=== PATIENT | male | born 1980 | race African-American/Black ===

== ENCOUNTER 2018-10-12 11:17 | Emergency (ER) | payer SELFPAY ==
--- NOTE | 2018-10-12 13:32 | EDM.PDOC ---
ED HPI GENERAL MEDICAL PROBLEM - General Chief Complaint: Lower Extremity Injury/Pain Stated Complaint: NEEDS TO BE CHECKED FOR BLOOD CLOT IN LEFT LEG Time Seen by Provider: 10/12/18 11:24 Source of Information: Reports: Patient History Limitations: Reports: No Limitations - History of Present Illness INITIAL COMMENTS - FREE TEXT/NARRATIVE: 38 y/o male presents to ER with cc left lower calf/ankle swelling and pain. He reports the pain started about 7 days ago. He reports the pain has increased and he has noticed an increased amount of swelling. He denies any recent long distant trips. He denies any SOB or chest pain. He denies any fever or chills. He reports the he has been in good health otherwise. He states he is concerned he might have a blood clot in his leg. Onset Date: 10/05/18 Onset Time: 09:00 Duration: Getting Worse Location: Reports: Lower Extremity, Left Quality: Reports: Ache Severity: Mild Improves with: Reports: None Worsens with: Reports: Movement Associated Symptoms: Denies: Chest Pain, Fever/Chills, Nausea/Vomiting, Shortness of Breath Left Lower Leg Pain Score (Numeric/FACES): 2 - Related Data Allergies Allergy/AdvReac Type Severity Reaction Status Date / Time No Known Allergies Allergy Verified 10/12/18 11:24 Home Meds: Home Meds . [No Known Home Meds] 10/12/18 [History] Past Medical History - Past Surgical History GI Surgical History: Reports: Appendectomy Social & Family History - Tobacco Use Smoking Status *Q: Never Smoker Second Hand Smoke Exposure: No - Caffeine Use Caffeine Use: Reports: Coffee - Recreational Drug Use Recreational Drug Use: No Review of Systems - Review of Systems Review Of Systems: See Below Constitutional: Reports: No Symptoms. Denies: Chills, Fever Eyes: Reports: No Symptoms Ears: Reports: No Symptoms Nose: Reports: No Symptoms Mouth/Throat: Reports: No Symptoms Respiratory: Denies: Shortness of Breath, Cough Cardiovascular: Denies: Chest Pain GI/Abdominal: Reports: No Symptoms Genitourinary: Reports: No Symptoms Musculoskeletal: Reports: Leg Pain (left ankle swelling and left calf swelling and pain. ), Foot Pain Skin: Reports: No Symptoms Neurological: Reports: No Symptoms Psychiatric: Reports: No Symptoms ED EXAM, GENERAL - Physical Exam Exam: See Below Exam Limited By: No Limitations General Appearance: Alert, WD/WN, No Apparent Distress Respiratory/Chest: No Respiratory Distress, Lungs Clear, Normal Breath Sounds, No Accessory Muscle Use, Chest Non-Tender Cardiovascular: Normal Peripheral Pulses, Regular Rate, Rhythm, No Edema, No Gallop, No JVD, No Murmur, No Rub Peripheral Pulses: 4+: Dorsalis Pedis (L), Dorsalis Pedis (R) GI/Abdominal: Normal Bowel Sounds, Soft, Non-Tender, No Organomegaly, No Distention, No Abnormal Bruit, No Mass, Pelvis Stable Back Exam: Normal Inspection, Full Range of Motion Extremities: No Pedal Edema, Normal Capillary Refill, Leg Pain (left calf moderate swelling, negative jaci's sign, left ankle swelling, neurovascularly intact. ), Increased Warmth. No: Jaci's Sign Neurological: Alert, Oriented, CN II-XII Intact, Normal Cognition, Normal Gait, Normal Reflexes, No Motor/Sensory Deficits Psychiatric: Normal Affect, Normal Mood Skin Exam: Warm, Dry, Intact, Normal Color, No Rash Lymphatic: No Adenopathy Course - Vital Signs Text/Narrative:: 38 y/o male presented to ER with cc left lower leg pain and swelling for the past 7 days. His Doppler revealed deep venous thrombosis starting within the distal left superficial femoral vein and extending distally. He was not SOB or experiencing chest pain. I do not feel he needs a PE workup at this time. I will discharge home with Xarelto 15 mg bid for 21 days then 20mg daily. I have given him a coupon for a 30 day free supply. I instructed him to take medications with food. I will discharge with instructions to follow up with Dr. Candelaria or other provider in clinic next week since he does not have a PCP. I instructed him to return to the ER for any new or acute worsening symptoms. I will allow patient to return to work 10/13/18 after he has started on his Xarelto. Last Recorded V/S: Last Vital Signs Temp 99.7 F 10/12/18 11:24 Pulse 74 10/12/18 11:24 Resp 18 10/12/18 11:24 BP 140/107 H 10/12/18 11:24 Pulse Ox - Orders/Labs/Meds Labs: Laboratory Tests 10/12/18 10/12/18 Range/Units 12:00 12:00 WBC 5.88 (4.23-9.07) K/mm3 RBC 4.53 L (4.63-6.08) M/mm3 Hgb 13.4 L (13.7-17.5) gm/L Hct 39.9 L (40.1-51.0) % MCV 88.1 (79.0-92.2) fl MCH 29.6 (25.7-32.2) pg MCHC 33.6 (32.2-35.5) g/dl RDW Std Deviation 40.8 (35.1-43.9) fL Plt Count 151 L (163-337) K/mm3 MPV 9.6 (9.4-12.3) fl Neut % (Auto) 60.8 (34.0-67.9) % Lymph % (Auto) 22.1 (21.8-53.1) % Jennings % (Auto) 7.7 (5.3-12.2) % Eos % (Auto) 8.5 H (0.8-7.0) Baso % (Auto) 0.7 (0.1-1.2) % Neut # (Auto) 3.58 (1.78-5.38) K/mm3 Lymph # (Auto) 1.30 L (1.32-3.57) K/mm3 Jennings # (Auto) 0.45 (0.30-0.82) K/mm3 Eos # (Auto) 0.50 (0.04-0.54) K/mm3 Baso # (Auto) 0.04 (0.01-0.08) K/mm3 Sodium 141 (136-145) mEq/L Potassium 3.6 (3.5-5.1) mEq/L Chloride 106 (98-107) mEq/L Carbon Dioxide 28 (21-32) mEq/L Anion Gap 10.6 (5-15) BUN 15 (7-18) mg/dL Creatinine 1.1 (0.7-1.3) mg/dL Est Cr Clr Drug Dosing 105.15 mL/min Estimated GFR (MDRD) > 60 (>60) mL/min BUN/Creatinine Ratio 13.6 L (14-18) Glucose 97 (74-106) mg/dL Calcium 9.7 (8.5-10.1) mg/dL Total Bilirubin 0.5 (0.2-1.0) mg/dL AST 26 (15-37) U/L ALT 38 (16-63) U/L Alkaline Phosphatase 86 (46-116) U/L C-Reactive Protein 2.5 H* (<1.0) mg/dL Total Protein 7.7 (6.4-8.2) g/dl Albumin 3.2 L (3.4-5.0) g/dl Globulin 4.5 gm/dL Albumin/Globulin Ratio 0.7 L (1-2) Departure - Departure Time of Disposition: 13:58 Disposition: Home, Self-Care 01 Condition: Good Clinical Impression: Dvt femoral (deep venous thrombosis) Qualifiers: Chronicity: unspecified Laterality: left Qualified Code(s): I82.412 - Acute embolism and thrombosis of left femoral vein - Discharge Information *PRESCRIPTION DRUG MONITORING PROGRAM REVIEWED*: Not Applicable Instructions: Deep Vein Thrombosis Referrals: PCP,Unknown [Ordering Only Provider] - Danyelle Candelaria MD [Physician] - Forms: ED Department Discharge, ED Return to Work/School Form Additional Instructions: You have been diagnosis with a deep vein thrombosis in your left lower leg. You may return to work 10/13/18 after you have started taking Xarelto as prescribed. You are to take Xarelto 15 mg twice daily for 21 days then 20 mg daily. Take this medication with food. Follow up with Dr. Candelaria or another provider [phone] next week. Use a soft toothbrush to prevent bleeding. Use a electric shaver to prevent bleeding. Return to the ER for any new or acute worsening symptoms.
--- NOTE | 2018-10-12 14:02 | US ---
Left lower extremity deep venous ultrasound: Duplex and color flow imaging was obtained of the left common femoral, proximal greater saphenous, superficial femoral, popliteal, posterior tibial and peroneal veins. Right common femoral vein was also evaluated. Findings: Common femoral vein and proximal and mid superficial femoral vein as well as greater saphenous vein show normal phasic flow, augmentation and compression. Distal superficial femoral vein, popliteal vein, posterior tibial vein and peroneal veins show lack of compression, phasic flow and augmentation with evidence of deep venous thrombosis. Right common femoral vein is patent. Impression: 1. Deep venous thrombosis starting within the distal left superficial femoral vein and extending distally Diagnostic code #5
== END 2018-10-12 13:59 | disposition home or self-care (01) ==
LOC: JD.ED 11:17
DX: I82.412 Acute embolism and thrombosis of left femoral vein (principal)
CPT/HCPCS: 36415; 80053; 85025; 86140; 93971-26-LT; 93971-LT; 99283; 99284-25

== ENCOUNTER 2018-10-16 05:59 | Emergency (ER) | payer SELFPAY ==
[2018-10-16] MEDS ORDERED: Rivaroxaban 10 MG Tab PO STA (06:07)
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
== END 2018-10-16 06:25 ==
LOC: JD.ED 05:59
DX: I82.402 Acute embolism and thrombosis of unspecified deep veins of left lower extremity (principal); Z02.89 Encounter for other administrative examinations
CPT/HCPCS: 99283; A9270